=== PATIENT | male | born 1970 ===

== ENCOUNTER 2016-11-25 12:32 | Emergency (ER) | payer MEDICAID, OTHER ==
[2016-11-25 12:48] VITALS: TEMP 97.6; O2SAT 98
[2016-11-25] MEDS ORDERED: Naproxen 550 mg Tab PO STA (12:59)
[2016-11-25] MEDS ORDERED: Naproxen 550 mg Tab PO ONE (13:10)
--- NOTE | 2016-11-25 13:17 | C.PDOC ---
History Of Present Illness 46 yo male c/o back pain since Friday (5 days). Pt notes that he was at work , lifted a counter top and felt uncomfortable. A few hours later the pain started. Denies direct trauma. No urinary or bowel continence. No change in sensation. No weakness. No h/o of back pain. Time Seen by Provider: 11/25/16 12:51 Chief Complaint (Nursing): Back Pain History Per: Patient History/Exam Limitations: no limitations Onset/Duration Of Symptoms: Days Current Symptoms Are (Timing): Still Present Quality Of Discomfort: "Pain" Past Medical History Reviewed: Historical Data, Nursing Documentation, Vital Signs Vital Signs: Last Vital Signs Temp 97.6 F 11/25/16 12:48 Pulse 84 11/25/16 14:37 Resp 16 11/25/16 14:37 BP 125/85 11/25/16 14:37 Pulse Ox 98 11/25/16 14:37 Family History: States: No Known Family Hx - Social History Hx Alcohol Use: Yes Hx Substance Use: No Review Of Systems Except As Marked, All Systems Reviewed And Found Negative. Constitutional: Negative for: Fever, Chills Gastrointestinal: Negative for: Nausea, Vomiting, Diarrhea Genitourinary: Negative for: Dysuria, Frequency, Incontinence Musculoskeletal: Positive for: Back Pain Skin: Negative for: Rash Neurological: Negative for: Weakness Physical Exam - Physical Exam Appears: Non-toxic, No Acute Distress Skin: Normal Color, Warm, Dry Head: Atraumatic, Normacephalic Eye(s): bilateral: Normal Inspection, EOMI Nose: Normal Oral Mucosa: Moist Neck: Normal ROM, No Midline Cervical Tenderness, Supple Chest: Symmetrical Cardiovascular: Rhythm Regular Respiratory: Normal Breath Sounds, No Accessory Muscle Use, No Rales, No Rhonchi , No Wheezing Gastrointestinal/Abdominal: Soft, No Tenderness, No Guarding, No Rebound Back: No CVA Tenderness, No Vertebral Tenderness, Muscle Spasm, Paraspinal Tenderness ((+) Right > left) Neurological/Psych: Oriented x3, Normal Speech, Normal Motor, Normal Sensation, Other (No focal deficits) Gait: Steady ED Course And Treatment O2 Sat by Pulse Oximetry: 98 (RA) Pulse Ox Interpretation: Normal Progress Note: On reassessment, patient is resting comfortably, with improvement of back pain. Patient remains afebrile, with no bony tenderness, extremity numbness or weakness, or abdominal pain. Patient is ambulatory in the emergency department with no signs of discomfort. Patient was advised to follow up with physician/clinic in 1-2 days. Reevaluation Time: 13:22 Reassessment Condition: Improved Disposition - Disposition Referrals: [facility] at [facility] [Outside] Disposition: HOME/ ROUTINE Disposition Time: 14:27 Condition: STABLE Additional Instructions: Vaya a rios mdico o la clnica en 1-3 flores sin falta, para mas evaluacin. [place] los medicamentos reena indicado. Volver a la citlalli de emergencia en cualquier momento si los sntomas persisten o empeoran. Prescriptions: Cyclobenzaprine [Cyclobenzaprine HCl] 10 mg PO TID #20 tab Naproxen [Naprosyn] 1 tab PO BID PRN #20 tab PRN Reason: Pain Instructions: Acute Low Back Pain (ED) Forms: [employer] (Bermudian) Print Language: KITTITIAN - Clinical Impression Clinical Impression: Low back pain - Scribe Statement The provider has reviewed the documentation as recorded by the Scribjus Simon All medical record entries made by the Scribe were at my direction and personally dictated by me. I have reviewed the chart and agree that the record accurately reflects my personal performance of the history, physical exam, medical decision making, and the department course for this patient. I have also personally directed, reviewed, and agree with the discharge instructions and disposition.
[2016-11-25 14:38] VITALS: BP 125/85; PULSE 84; RESP 16
--- NOTE | 2016-11-25 14:42 | RAD ---
PROCEDURE: Radiographs of the Lumbar Spine. HISTORY: pain COMPARISON: None available. FINDINGS: BONES: Alignment appears satisfactory. No listhesis. No acute displaced fracture identified. DISC SPACES: Unremarkable. OTHER FINDINGS: None. IMPRESSION: No acute displaced fracture or subluxation identified.
== END 2016-11-25 14:37 | disposition home or self-care (01) ==
LOC: C.ER 12:32
DX: M54.5 Low back pain (principal)